=== PATIENT | female | born 1960 | race Caucasian/White ===

== ENCOUNTER 2016-07-06 11:52 | Emergency (ER) | payer BC ==
[2016-07-06 12:30] VITALS: BP 121/67
--- NOTE | 2016-07-06 13:32 | UC ---
Complaint Female HPI - HPI Summary HPI Summary: ONSET OF THICK, YELLOW URINE YESTERDAY WITH "A LITTLE BURNING" ONSET TODAY OF BLOOD IN URINE, NO BURNING DURING VOID TODAY. LAST DIAGNOSTIC 2012 SHOWED KIDNEY STONE PRESENT. Had kidney stone 2012 and never had treated . No side or flank pain. No fever or weight changes [ End ] - History Of Current Complaint Chief Complaint: UCGU Stated Complaint: UTI SYMPTOMS Time Seen by Provider: 07/06/16 13:28 Hx Obtained From: Patient ?: No Onset/Duration: Sudden Onset Timing: Constant Severity Initially: Mild Severity Currently: Moderate Character: Sharp Aggravating Factor(s): Urination Associated Signs And Symptoms: Negative: Fever, Back Pain, Vaginal Bleeding/ Discharge, Vaginal Discharge, Nausea, Vomiting(# Of Episodes =) - Risk Factors Ectopic Risk Factor: Negative - Allergies/Home Medications Allergies/Adverse Reactions: Allergies Allergy/AdvReac Type Severity Reaction Status Date / Time No Known Allergies Allergy Verified 07/06/16 12:30 Home Medications: Home Medications Acai (Euterpe Oleracea) [Acaiberry] 500 mg PO DAILY 07/06/16 [History Confirmed 07/06/16] Chromium [Crm] 200 mcg PO DAILY 07/06/16 [History Confirmed 07/06/16] Coenzyme U90-Txyemrsprsamz [Co Q-10/l-Carnitine 30-250 mg] 1 cap PO DAILY [History Confirmed 07/06/16] Multiple Vitamin [Multi Vitamin] 1 tab PO DAILY 07/06/16 [History Confirmed ] Multiple Vitamins W/ Minerals [Ocuvite Eye Health Formul] 1 cap PO DAILY [History Confirmed 07/06/16] Naproxen Sodium [Naproxen Sodium 220 mg cap] 220 mg PO DAILY 07/06/16 [History Confirmed 07/06/16] Selenium [Selenimin-200] 200 mcg PO DAILY 07/06/16 [History Confirmed 07/06/16] PMH/Surg Hx/FS Hx/Imm Hx Previously Healthy: Yes Endocrine History Of: Denies: Thyroid Disease Cardiovascular History Of: Denies: Cardiac Disorders GI/ History Of: Reports: Kidney Stones Neurological History Of: Denies: TIA Cancer History Of: Denies: Lung Cancer - Surgical History Surgical History: None - Social History Occupation: Employed Full-time Lives: With Family Alcohol Use: None Substance Use Type: None Smoking Status (MU): Former Smoker When Did the Patient Quit Smoking/Using Tobacco: 1989 Review of Systems Constitutional: Negative Skin: Negative Eyes: Negative ENT: Negative Respiratory: Negative Cardiovascular: Negative Gastrointestinal: Negative Genitourinary: Dysuria, Frequency, Urgency Motor: Negative Neurovascular: Negative Musculoskeletal: Negative Neurological: Negative Psychological: Negative All Other Systems Reviewed And Are Negative: Yes Physical Exam Triage Information Reviewed: Yes Appearance: Well-Appearing, No Pain Distress, Well-Nourished Vital Signs: Initial Vital Signs Temp 99.4 F 07/06/16 12:19 Pulse 83 07/06/16 12:19 Resp 12 07/06/16 12:19 BP 121/67 07/06/16 12:19 Pulse Ox 100 07/06/16 12:19 Vital Signs Reviewed: Yes Eye Exam: Normal ENT Exam: Normal Dental Exam: Normal Neck exam: Normal Neck: Positive: 1 Respiratory Exam: Normal Cardiovascular Exam: Normal Abdominal Exam: Normal Abdomen Description: Positive: Nontender, No Organomegaly, Soft, Bruit. Negative: CVA Tenderness (R), CVA Tenderness (L), Distended, Guarding Musculoskeletal Exam: Normal Neurological Exam: Normal Psychological Exam: Normal Psychological: Positive: Consolable - anxious Skin Exam: Normal Complaint Female Dx - Course Course Of Treatment: She is aware to f/u with PCP for recheck and she may passed kidney stone but no flank pain or abdominal pain today and declined CT scan and would prefer to have sono during the week days if her symptoms persisted - Differential Dx/Diagnosis Differential Diagnosis/HQI/PQRI: Ureteral Stone, Urinary Tract Infection Provider Diagnoses: uti and hematuria Discharge - Discharge Plan Condition: Good Disposition: HOME Prescriptions: Sulfamethox/Trimethoprim DS* [Bactrim DS 800/160 TAB*] 1 tab PO BID #10 tab Patient Education Materials: Urinary Tract Infection in Women (ED) Referrals: Richard Dillon DO [Primary Care Provider] - 3 Days (You will need a follow up urine recheck in 10-14 days )
== END 2016-07-06 13:56 | disposition home or self-care (01) ==
LOC: UCCORT 11:52
DX: N39.0 Urinary tract infection, site not specified (principal); R31.9 Hematuria, unspecified; Z87.442 Personal history of urinary calculi; Z87.891 Personal history of nicotine dependence
CPT/HCPCS: 81003; 87077; 87086; 87186; 99212; G0463

== ENCOUNTER 2016-07-13 16:38 | Emergency (ER) | payer BC ==
[2016-07-13 17:15] VITALS: BP 131/69
--- NOTE | 2016-07-13 17:52 | UC ---
Complaint Female HPI - HPI Summary HPI Summary: complaint of dysuria seen last 07/06/16 and treated for UTI with bactrim last does morning 6AM today she noticed blood in her urine increased pain with urination today no increase in frequency or urgency denies fever , chills , back pain or abdominal pain - History Of Current Complaint Chief Complaint: UCGU Stated Complaint: RE-CK URINARY Time Seen by Provider: 07/13/16 17:43 Hx Obtained From: Patient - Allergies/Home Medications Allergies/Adverse Reactions: Allergies Allergy/AdvReac Type Severity Reaction Status Date / Time No Known Allergies Allergy Verified 07/13/16 17:08 Home Medications: Home Medications Misc Natural Products [Dandelion Root] 520 mg PO ONCE PRN 07/13/16 [History Confirmed 07/13/16] PMH/Surg Hx/FS Hx/Imm Hx Previously Healthy: No - UTI Endocrine History Of: Denies: Thyroid Disease Cardiovascular History Of: Denies: Cardiac Disorders GI/ History Of: Reports: Kidney Stones Neurological History Of: Denies: TIA Cancer History Of: Denies: Lung Cancer - Surgical History Surgical History: None - Family History Known Family History: Negative: Cardiac Disease, Hypertension, Diabetes - Social History Occupation: Employed Full-time Alcohol Use: None Substance Use Type: None Smoking Status (MU): Former Smoker When Did the Patient Quit Smoking/Using Tobacco: 1989 Review of Systems Constitutional: Negative Skin: Negative Eyes: Negative ENT: Negative Respiratory: Negative Cardiovascular: Negative Gastrointestinal: Negative Genitourinary: Dysuria, Hematuria, Frequency, Urgency Motor: Negative Neurovascular: Negative Musculoskeletal: Negative Neurological: Negative Psychological: Negative All Other Systems Reviewed And Are Negative: Yes Physical Exam Triage Information Reviewed: Yes Appearance: No Pain Distress, Well-Nourished Vital Signs: Initial Vital Signs Temp 98.9 F 07/13/16 17:11 Pulse 74 07/13/16 17:11 Resp 18 07/13/16 17:11 BP 131/69 07/13/16 17:11 Pulse Ox 100 07/13/16 17:11 Vital Signs Reviewed: Yes Eyes: Positive: Conjunctiva Clear ENT: Positive: Pharynx normal. Negative: Nasal congestion Neck: Positive: No Lymphadenopathy Respiratory: Positive: Lungs clear, Normal breath sounds, No respiratory distress Cardiovascular: Positive: RRR, No Murmur, Pulses Normal Abdomen Description: Positive: Nontender, No Organomegaly, Soft. Negative: CVA Tenderness (R), CVA Tenderness (L), Distended, Guarding Bowel Sounds: Positive: Present Musculoskeletal: Positive: No Edema Neurological: Positive: Alert Psychological Exam: Normal Skin Exam: Normal Complaint Female Dx - Course Course Of Treatment: exam completed. UA indicates UTI present. will start cipro or treatment. pt also has hx of kidney stones -discussed s/s of when to seek emergnt care - Differential Dx/Diagnosis Differential Diagnosis/HQI/PQRI: Ureteral Stone, Urinary Tract Infection Provider Diagnoses: UTI Discharge - Discharge Plan Condition: Stable Disposition: HOME Prescriptions: Ciprofloxacin TAB* [Cipro 500 MG TAB*] 500 mg PO BID #14 tab Patient Education Materials: Urinary Tract Infection in Women (ED) Referrals: Richard Dillon DO [Primary Care Provider] - Additional Instructions: Please take antibiotic as directed Increase fluids and rest Take acetaminophen or ibuprofen for fever or pain Please review your discharge instructions. If your symptoms do not improve please call your primary care provider or return to urgent care. Your blood pressure is pre-hypertensive reading. Please contact your primary care provider within 1 day -4 weeks for further evaluation
[2016-07-13] MEDS ORDERED: Ciprofloxacin TAB* 500 MG PO ONE (18:12)
== END 2016-07-13 18:18 | disposition home or self-care (01) ==
LOC: UCCORT 16:38
DX: N39.0 Urinary tract infection, site not specified (principal); R31.9 Hematuria, unspecified; Z87.442 Personal history of urinary calculi; Z87.891 Personal history of nicotine dependence
CPT/HCPCS: 81003; 87086; 99212; A9270-GY; G0463

== ENCOUNTER 2016-09-07 18:38 | Emergency (ER) | payer BC ==
[2016-09-07 18:50] VITALS: BP 123/74
--- NOTE | 2016-09-07 19:16 | UC ---
Complaint Female HPI - History Of Current Complaint Stated Complaint: URINARY COMPLAINT Hx Obtained From: Patient ?: No Onset/Duration: Sudden Onset - with blood in the urine., Still Present Severity Initially: Moderate Severity Currently: Moderate Aggravating Factor(s): Nothing Alleviating Factor(s): Nothing Associated Signs And Symptoms: Positive: Negative - Allergies/Home Medications Allergies/Adverse Reactions: Allergies Allergy/AdvReac Type Severity Reaction Status Date / Time No Known Allergies Allergy Verified 09/07/16 18:44 Home Medications: Home Medications Acai (Euterpe Oleracea) [Acai] 1 cap PO DAILY 09/07/16 [History Confirmed ] PMH/Surg Hx/FS Hx/Imm Hx GI/ History: Kidney Stones - Surgical History Surgical History: None - Family History Known Family History: Negative: Cardiac Disease, Hypertension, Diabetes - Social History Occupation: Employed Full-time Lives: With Family Alcohol Use: None Substance Use Type: None Smoking Status (MU): Former Smoker Have You Smoked in the Last Year: No When Did the Patient Quit Smoking/Using Tobacco: 1989 Review of Systems Genitourinary: Hematuria All Other Systems Reviewed And Are Negative: Yes Physical Exam Triage Information Reviewed: Yes Appearance: Well-Appearing, No Pain Distress, Well-Nourished Vital Signs: Initial Vital Signs Temp 99.3 F 09/07/16 18:45 Pulse 77 09/07/16 18:45 Resp 18 09/07/16 18:45 BP 123/74 09/07/16 18:45 Pulse Ox 100 09/07/16 18:45 Vital Signs Reviewed: Yes Eyes: Positive: Conjunctiva Clear Neck exam: Normal Respiratory Exam: Normal Cardiovascular Exam: Normal Abdomen Description: Positive: Nontender, No Organomegaly, Soft. Negative: CVA Tenderness (R), CVA Tenderness (L) Bowel Sounds: Positive: Present Musculoskeletal Exam: Normal Neurological Exam: Normal Psychological Exam: Normal Skin Exam: Normal Complaint Female Dx - Differential Dx/Diagnosis Differential Diagnosis/HQI/PQRI: Renal Colic, Ureteral Stone, Urinary Tract Infection Provider Diagnoses: Gross Hematuria. Kidney stone, non-obstructing. Discharge - Discharge Plan Condition: Stable Disposition: HOME Patient Education Materials: Kidney Stones (ED), Hematuria (ED) Referrals: Richard Dillon DO [Primary Care Provider] - 4 Days (follow up on the hematuria) Erick Rehman MD [Medical Doctor] - As Soon As Possible (for evaluation of the gross hematuria.)
--- NOTE | 2016-09-07 19:43 | RAD ---
HISTORY: Eleno hematuria COMPARISONS: None VIEWS: Frontal views of the abdomen. FINDINGS: BOWEL: There is a nonobstructive bowel gas pattern. There is a large amount of stool within the colon. CALCULI: There is a 0.5 cm calculus overlying the right renal parenchymal shadow. BONES AND SOFT TISSUES: Mild degenerative changes are noted OTHER FINDINGS: The lung bases are clear. There is no subphrenic gas. IMPRESSION: RIGHT NEPHROLITHIASIS
== END 2016-09-07 19:59 | disposition home or self-care (01) ==
LOC: UCCORT 18:38
DX: N20.0 Calculus of kidney (principal); R31.0 Gross hematuria; Z87.442 Personal history of urinary calculi; Z87.891 Personal history of nicotine dependence
CPT/HCPCS: 74000; 81003; 99211; G0463

== ENCOUNTER 2016-09-13 20:48 | Emergency (ER) | payer BC ==
--- NOTE | 2016-09-13 20:55 | UC ---
Complaint Female HPI - HPI Summary HPI Summary: 56 year old female presents with severe hematuria. I will send her to the ER. I spoke to Dr Reagan. - History Of Current Complaint Stated Complaint: urinary Time Seen by Provider: 09/13/16 20:49 - Allergies/Home Medications Allergies/Adverse Reactions: Allergies Allergy/AdvReac Type Severity Reaction Status Date / Time No Known Allergies Allergy Verified 09/13/16 20:55 PMH/Surg Hx/FS Hx/Imm Hx - Surgical History Surgical History: None - Family History Known Family History: Negative: Cardiac Disease, Hypertension, Diabetes - Social History Alcohol Use: None Substance Use Type: None Smoking Status (MU): Former Smoker Have You Smoked in the Last Year: No When Did the Patient Quit Smoking/Using Tobacco: 1989 Review of Systems Constitutional: Negative Skin: Negative Eyes: Negative ENT: Negative Respiratory: Negative Cardiovascular: Negative Gastrointestinal: Negative Genitourinary: Hematuria Motor: Negative Neurovascular: Negative Musculoskeletal: Negative Neurological: Negative Psychological: Negative All Other Systems Reviewed And Are Negative: Yes Physical Exam Triage Information Reviewed: Yes Eye Exam: Normal ENT Exam: Normal Dental Exam: Normal Neck exam: Normal Neck: Positive: 1 Respiratory Exam: Normal Cardiovascular Exam: Normal Abdominal Exam: Normal Musculoskeletal Exam: Normal Neurological Exam: Normal Psychological Exam: Normal Skin Exam: Normal Complaint Female Dx - Differential Dx/Diagnosis Provider Diagnoses: hematuria Discharge - Discharge Plan Condition: Guarded Disposition: AGAINST MEDICAL ADVICE Patient Education Materials: Hematuria (ED) Referrals: Richard Dillon DO [Primary Care Provider] -
[2016-09-13 21:23] VITALS: BP 120/53
== END 2016-09-13 21:26 | disposition left against medical advice (07) ==
LOC: UCCORT 20:48
DX: R31.9 Hematuria, unspecified (principal); Z87.891 Personal history of nicotine dependence
CPT/HCPCS: 81003; 99212; G0463

== ENCOUNTER 2016-09-18 07:04 | Day surgery (SDC) | payer BC ==
--- NOTE | 2016-09-17 10:00 | HP ---
CC: Dr. Dillon * ADMITTING HISTORY AND PHYSICAL: DATE OF ADMISSION: 09/18/16. AGE: 56 years, female. ADMITTING DIAGNOSES: 1. Gross hematuria. 2. Calculus, right uretero-pelvic junction. 3. Right hydronephrosis. PLANNED PROCEDURE: Right stent insertion (to be followed in near future by lithotripsy). SURGEON: Yousif Gutierres MD. HISTORY OF PRESENT ILLNESS: Amaya Hammond is a 56-year-old female with a history of renal calculi who had been treated a couple of months ago for urinary tract infection, then about 10-12 days ago she had a few episodes of gross hematuria. Evaluation revealed a 5 to 6 cm calculus at the right uretero- pelvic junction. She was initially managed conservatively, but continues to have episodes of gross hematuria and flank pain, and eventually required a trip on 09/13/16 to the [facility] where a CT scan again confirmed a 6 mm calculus at the right uretero-pelvic junction. She is now being brought in for right stent insertion to be followed in the near future by lithotripsy. PAST MEDICAL HISTORY: Significant for renal calculi in 1982 and 2012. MEDICATIONS ON ADMISSION: None (had been taking Flomax 0.4 mg, currently stopped). ALLERGIES: No known drug allergies PAST SURGICAL HISTORY: Negative. FAMILY HISTORY: Negative for stones. SMOKING HISTORY: She is a former smoker who quit in 1989. REVIEW OF SYSTEMS: She denies any chest pain or shortness of breath. There is no history of diabetes mellitus or any other major systemic illness. PHYSICAL EXAMINATION GENERAL: Reveals a pleasant, anxious, middle-aged lady. VITAL SIGNS: Blood pressure 122/80, pulse 64 per minute, oxygen saturation 97% on room air. CARDIOVASCULAR: Regular rate and rhythm. S1, S2. LUNGS: Clear bilaterally. ABDOMEN: Soft with mild right flank tenderness. IMPRESSION: A 56-year-old lady with episodes of gross hematuria and right flank pain secondary to a 6 mm calculus at the right uretero-pelvic junction. Planned procedure is right stent insertion to be followed by lithotripsy. [id number]/[facility] #: [id number] MTDD
[~2016-09-18 07:04] MED LIST: Buffered Lidocaine 0.9% SYRIN* 5 ML/SYR SYRINGE INTRADERM ONE; Sodium Citrate/Citric Acid* 15 ML UDC PO ONE
[2016-09-18] MEDS ORDERED: cefTRIAXone(*) 2 GM ADDV.VIAL IVPB ONE (07:17)
[2016-09-18] MEDS ORDERED: Sodium Citrate/Citric Acid* 15 ML UDC ONE (07:17)
[2016-09-18] MEDS ORDERED: Iohexol 180 (CONTRAST) 10 ML SDV IV ONE (09:21)
[2016-09-18] MEDS ORDERED: fentaNYL* 50 MCG/ML 2 ML VIAL (100 MCG VIAL) ONE (09:27)
[2016-09-18] MEDS ORDERED: Midazolam* 1 MG/ML 5 ML VIAL (5 MG) ONE (09:27)
[2016-09-18 11:00] VITALS: BP 120/74
--- NOTE | 2016-09-18 11:22 | RAD ---
INDICATION: RIGHT retrograde pyelogram and stent placement. Urolithiasis. COMPARISON: September 12, 2016 abdomen radiograph. TECHNIQUE: 11 seconds fluoroscopy. FINDINGS: RIGHT retrograde pyelogram is without evidence for significant calyceal blunting. RIGHT ureteral stent placed. IMPRESSION: Procedural fluoroscopy. CPT II Codes: 6045F
--- NOTE | 2016-09-18 11:52 | RAD ---
Indication: Post RIGHT ureteral stent placement. Urolithiasis. Comparison: Retrograde pyelogram of the same date and September 12, 2016 abdomen radiograph. Technique: Supine view of the abdomen. Report: Unremarkable bowel gas pattern. Moderate stool in the colon without significant rectal distension. Typical partial obscuration of the renal fossa and course of the ureters by bowel contents Approximate 5 mm stone at level of the RIGHT renal pelvis level of the proximal pigtail of the RIGHT ureteral stent. No additional suspicious calcifications evident. Unremarkable soft tissue contours. IMPRESSION: Unchanged approximate 5 mm stone at level of the RIGHT renal pelvis level of the proximal pigtail of the newly placed RIGHT ureteral stent. No additional suspicious calcifications evident.
--- NOTE | 2016-09-19 01:29 | OP ---
CC: Dr. Richard Dillon * DATE OF OPERATION: 09/18/16 - [facility] DATE OF : 56 SURGEON: Yousif Gutierres MD. ANESTHESIOLOGIST: Dr. Nelson. ANESTHESIA: Intravenous sedation. PRE-OP DIAGNOSES: 1. Right hydronephrosis. 2. Calculus, right ureteropelvic junction. 3. Gross hematuria. POST-OP DIAGNOSES: 1. Right hydronephrosis. 2. Calculus, right ureteropelvic junction. 3. Gross hematuria. OPERATIVE PROCEDURE: Cystoscopy, right retrograde pyelogram, right ureteral calculus manipulation and right stent insertion. COMPLICATIONS: None. POSTOPERATIVE CONDITION: Stable. STENT USED: A 6-Anguillan stent, right ureter. INDICATIONS: Amaya Hammond is a 56-year-old lady who has had episodic gross hematuria and discomfort secondary to a calculus at the right uteropelvic junction. She is being brought in for stent insertion to be followed in the near future by lithotripsy. DESCRIPTION OF PROCEDURE: After induction of intravenous sedation, the patient was placed in dorsal lithotomy position. Sequential compression devices were in place and functioning. Initial cystoscopy revealed a normal appearing bladder. A guidewire was introduced into the right ureter. The radiopaque calculus could be seen on fluoroscopy in the area of the right ureteropelvic junction. The wire was advanced proximally and the calculus was carefully manipulated into the kidney. Once this was done, there was a significant drainage of contrast noted from the kidney suggesting an obstructive process. A 6-Anguillan stent was introduced and positioned under fluoroscopy with good proximal and distal positioning obtained. It should be noted that at the beginning of the procedure, the patient was noted to have urethral stenosis and the bladder was emptied at the end of the procedure. The patient tolerated the procedure satisfactorily and was transferred back to the recovery area in stable condition. [id number]/[facility] #: [id number] MTDD
== END 2016-09-18 11:31 | disposition home or self-care (01) ==
LOC: OR 07:04
PROVIDERS: ATTEND Urology
DX: N13.2 Hydronephrosis with renal and ureteral calculous obstruction (principal); R31.0 Gross hematuria; Z96.0 Presence of urogenital implants; Z87.891 Personal history of nicotine dependence
CPT/HCPCS: 74000; 74420; A9270-GY; C1876; J0696; J2250; J3010

== ENCOUNTER 2016-09-18 15:15 | Emergency (ER) | payer BC ==
[2016-09-18 15:27] VITALS: BP 126/62
[2016-09-18] MEDS ORDERED: HYDROcodone/ACETAMIN 5-325 MG* 1 TAB PO ONE (16:00)
[2016-09-18] MEDS ORDERED: Ondansetron ODT TAB* 4 MG PO ONE (16:06)
[2016-09-18] MEDS ORDERED: Phenazopyridine TAB* 100 MG PO ONE (16:06)
--- NOTE | 2016-09-18 16:38 | UC ---
Complaint Female HPI - HPI Summary HPI Summary: Pt presents with c/o of pelvic pain s/p uretral stent this morning by Dr. Gutierres. Pt hasa 6mm renal calculi that pt has scheduled lithotripsy for . Pt is not able to manage pain at home. Pt also states she has not urinated in hours. - History Of Current Complaint Chief Complaint: UCGU Stated Complaint: KIDNEY PAIN Time Seen by Provider: 09/18/16 15:47 Hx Obtained From: Patient ?: No Onset/Duration: Sudden Onset, Lasting Hours, Still Present Timing: Constant Severity Initially: Mild Severity Currently: Moderate Character: Dull Alleviating Factor(s): Nothing Associated Signs And Symptoms: Positive: Nausea - Allergies/Home Medications Allergies/Adverse Reactions: Allergies Allergy/AdvReac Type Severity Reaction Status Date / Time No Known Allergies Allergy Verified 09/18/16 15:27 PMH/Surg Hx/FS Hx/Imm Hx Previously Healthy: Yes - Surgical History Surgical History: Yes Surgery Procedure, Year, and Place: Urinary Stent 09/18/16 - Family History Known Family History: Negative: Cardiac Disease, Hypertension, Diabetes - Social History Alcohol Use: None Substance Use Type: None Smoking Status (MU): Former Smoker Amount Used/How Often: 2 cig per day Have You Smoked in the Last Year: No When Did the Patient Quit Smoking/Using Tobacco: 1989 Review of Systems Constitutional: Negative Skin: Negative Eyes: Negative ENT: Negative Respiratory: Negative Cardiovascular: Negative Gastrointestinal: Nausea Genitourinary: Hematuria, Other - oliguria Motor: Negative Neurovascular: Negative Musculoskeletal: Negative Neurological: Negative Psychological: Negative All Other Systems Reviewed And Are Negative: Yes Physical Exam Triage Information Reviewed: Yes Appearance: Pain Distress Vital Signs: Initial Vital Signs Temp 98.9 F 09/18/16 15:19 Pulse 74 09/18/16 15:19 Resp 18 09/18/16 15:19 BP 126/62 09/18/16 15:19 Pulse Ox 100 09/18/16 15:19 Vital Signs Reviewed: Yes Eye Exam: Normal Respiratory Exam: Normal Abdominal Exam: Normal Abdomen Description: Positive: Nontender Musculoskeletal Exam: Normal Neurological Exam: Normal Psychological Exam: Normal Skin Exam: Normal Complaint Female Dx - Course Course Of Treatment: I spoke to Dr. Gutierres regarding the pt. He recommned that we staright catherize the pt. If there was more than 100 cc of urine, then he advised that pt was retaining urine and the catherization would relieve the bladder discomfort and help alleviate the spasm. If there was less than 100 cc of urine then the pt was most probably expeirencing bladder spasm secondary to the uretral stnet placed to day and that a low dover pain reliever would help relax the pt and the bladder. The pt was cartherterized with a 16 Fr. red rubber catherter and less than 100 cc of azucena hematuria. Pt was given hydrocodone/acet 5/325, 8mg zofran at clinic and stated prior to discharge that she was "feeling better" .. Pt was discahrged with tramadol to take Q 8 hours PRN for pain. - Differential Dx/Diagnosis Differential Diagnosis/HQI/PQRI: Ureteral Stone Provider Diagnoses: pelvic pain. oliguria. post procedure pain. hematuria Discharge - Discharge Plan Condition: Stable Disposition: HOME Prescriptions: Ondansetron HCl [Zofran 4 MG TAB] 4 mg PO Q8H #12 tab traMADol TAB* [Ultram*] 25 mg PO Q8H PRN #9 tab MDD 3 PRN Reason: Pain Patient Education Materials: Pain Management After Surgery (GEN), Pelvic Pain ( ED) Referrals: Richard Dillon DO [Primary Care Provider] - Yousif Gutierres MD [Medical Doctor] -
== END 2016-09-18 16:59 | disposition home or self-care (01) ==
LOC: UCCORT 15:15
DX: R10.2 Pelvic and perineal pain (principal); R34 Anuria and oliguria; R31.9 Hematuria, unspecified; N20.0 Calculus of kidney; R11.0 Nausea; R20.0 Anesthesia of skin; Z87.891 Personal history of nicotine dependence
CPT/HCPCS: 51701; 93005; 99212; A9270-GY; G0463

== ENCOUNTER 2016-09-23 09:15 | Day surgery (SDC) | payer BC ==
[~2016-09-23 09:15] MED LIST changes: +Famotidine IV* 10 MG/ML 2 ML (20 mg) IV ONE; -Sodium Citrate/Citric Acid* 15 ML UDC PO ONE
[2016-09-23] MEDS ORDERED: Dexamethasone IV* 4 MG/ML 1 ML (4 MG) ONE (09:42)
[2016-09-23] MEDS ORDERED: Famotidine IV* 10 MG/ML 2 ML (20 mg) ONE (09:42)
[2016-09-23] MEDS ORDERED: Buffered Lidocaine 0.9% SYRIN* 5 ML/SYR SYRINGE ONE (09:42)
[2016-09-23] MEDS ORDERED: cefTRIAXone(*) 2 GM ADDV.VIAL IVPB ONE (09:42)
[2016-09-23] MEDS: Solifenacin(NF) 5 MG TAB PO ONE (10:24)
[2016-09-23] MEDS: Dexamethasone IV* 4 MG/ML 1 ML (4 MG) IV SLOW PU ONE ×2 (10:25→10:26)
[2016-09-23] MEDS ORDERED: Scopolamine 1.5 mg* PATCH ONE (10:29)
[2016-09-23] MEDS ORDERED: Scopolamine 1.5 mg* PATCH TRANSDERM SCH (10:38)
--- NOTE | 2016-09-23 10:39 | RAD ---
INDICATION: Shockwave lithotripsy. COMPARISON: Comparison is made with a prior KUB series from September 18, 2016. TECHNIQUE: Frontal supine films of the abdomen were obtained. FINDINGS: The small bowel and colon appear nondistended. There is a double-J ureteral stent catheter present on the right side. There are 2 small areas of calcification which project over the region of the right renal pelvis and lower pole measuring 2 and 4 mm each. IMPRESSION: RIGHT RENAL CALCULI AND STENT CATHETER NOTED.
[2016-09-23] MEDS ORDERED: Midazolam* 1 MG/ML 2 ML VIAL (2 MG) ONE (10:41)
[2016-09-23] MEDS ORDERED: fentaNYL* 50 MCG/ML 2 ML VIAL (100 MCG VIAL) ONE (10:41)
[2016-09-23] MEDS ORDERED: Propofol* 10 MG/ML 20 ML BTL IV PUSH ONE (11:15)
[2016-09-23 12:45] VITALS: BP 121/92
--- NOTE | 2016-09-23 14:19 | RAD ---
Indication: Status post lithotripsy. Single view of the abdomen demonstrates right ureteral stent in place. Calcifications are noted overlying the lower pole of the right kidney. Bowel gas pattern is unremarkable. IMPRESSION: Calcification overlying the lower pole of the right kidney. Right ureteral stent in place.
--- NOTE | 2016-09-24 05:37 | OP ---
DATE OF OPERATION: 09/23/16 - [facility] DATE OF : 56 - AGE: 56 years, female. SURGEON: Yousif Gutierres MD ANESTHESIOLOGIST: Dr. Chaidez. ANESTHESIA: Intravenous sedation. PRE-OP DIAGNOSES: 1. Right renal calculus. 2. Gross hematuria. POST-OP DIAGNOSES: 1. Right renal calculus. 2. Gross hematuria. OPERATIVE PROCEDURE: Shockwave lithotripsy of right renal calculus. COMPLICATIONS: None. INDICATIONS: Amaya Hammond is a 56-year-old lady who had undergone stent insertion for a calculus at the right ureteropelvic junction. She is now being brought in for lithotripsy. POSTOPERATIVE CONDITION: Stable. DESCRIPTION OF PROCEDURE: After induction of intravenous sedation, the patient was placed on the lithotripsy table in supine position. The calculus which was now in the lower pole of the right kidney was localized using fluoroscopy. Shockwave lithotripsy was commenced at a rate of 90 shocks per minute, which was later changed to 60 shocks per minute. After the initial 300 shocks, there was a pause in lithotripsy for several minutes in an effort to minimize any potential trauma to the kidney. Lithotripsy was then resumed and a total of 2400 shocks were administered. Partial fragmentation was observed. The plan is to obtain a postoperative x-ray and then decide regarding stent removal. The patient tolerated the procedure satisfactorily and was transferred back to the recovery area in stable condition. [id number]/[facility] #: [id number] MTDD
== END 2016-09-23 12:51 | disposition home or self-care (01) ==
LOC: OR 09:15
PROVIDERS: ATTEND Urology
DX: N13.2 Hydronephrosis with renal and ureteral calculous obstruction (principal); R31.0 Gross hematuria; Z87.440 Personal history of urinary (tract) infections
CPT/HCPCS: 74000; A9270-GY; J0696; J1100; J2250; J2704; J3010